=== PATIENT | male | born 1955 | race Caucasian/White ===

== ENCOUNTER 2018-11-24 07:13 | Day surgery (SDC) | payer MEDICARE, SELFPAY ==
[~2018-11-24] VITALS: Ht 170.2 cm; Wt 100.3 kg
[~2018-11-24 07:13] MED LIST: AMLO10 PO; ATEN100; BUPR100 PO; BUPR150ER PO; CLOP75 PO; Hydrochloroth12.5 MG PO; Hydrocodone-Ap1 EA23 PO; LOSA50 PO; RANI150 PO
--- NOTE | 2018-11-24 09:47 | NUR ---
11/24/[address] NOTIFIED THAT PT AND SON ARE REQUESTING STRONGER POST OP PAIN MEDICATION. NO NEW ORDERS RECEIVED. PT STATES 8/10 PAIN. PT DRINKING COFFEE, EATING COOKIES, AND CHATTING WITH SON. PT DOES NOT APPEAR TO BE IN DISTRESS. VSS. PT GIVEN FIRST DOSE OF ORAL POST OP PAIN MEDICATION PER ORDER, SEE EMAR. PT STATES IF WE AREN'T GIVING HIM ANYTHING STRONGER HE IS READY TO GO HOME. DISCHARGE TEACHING COMPLETE W/ PT AND SON. NO QUESTIONS AT THIS TIME.
== END 2018-11-24 09:50 | disposition home or self-care (01) ==
LOC: ORSCSDS 07:13
PROVIDERS: Orthopaedic Surgery
PROC: 0MB30ZZ Excision of Right Elbow Bursa and Ligament, Open Approach (ICD-10-PCS; principal; 2018-11-24 08:15)
DX: M70.21 Olecranon bursitis, right elbow (principal); I10 Essential (primary) hypertension; J44.9 Chronic obstructive pulmonary disease, unspecified; F17.210 Nicotine dependence, cigarettes, uncomplicated; E66.9 Obesity, unspecified; Z68.34 Body mass index [BMI] 34.0-34.9, adult; Z79.899 Other long term (current) drug therapy
CPT/HCPCS: 88304; J0690; J1100; J1885; J2405; J2704; J2795; J3010; J7120

== ENCOUNTER → 2020-01-19 | Outpatient (CLI) | payer MEDICARE ==
[2020-01-19 18:20] LABS: Protein, Urine Quantitative 238.3 mg/dL (0.0-11.9)
== END | disposition home or self-care (01) ==
LOC: LAB 12:00 → LAB SHORT 12:00
PROVIDERS: Internal Medicine
DX: N17.9 Acute kidney failure, unspecified (principal)
CPT/HCPCS: 81050; 84156

== ENCOUNTER 2023-12-08 06:01 | Day surgery (SDC) | payer MEDICARE ==
[~2023-12-08] VITALS: Ht 170.2 cm; Wt 107.0 kg
[~2023-12-08 06:01] MED LIST changes: +CALC.25 PO; +GABA300 PO; +MULTI-VITAMIN1 EAC2 PO; +Vitamin B Comple1 EA PO
[2023-12-08] MEDS ORDERED: Lactated Ringer's 1,000 ML IV SCH (06:30)
[2023-12-08 06:46] VITALS: BP 137/75
[2023-12-08] MEDS ORDERED: Ipratropium/Albuterol SulF 2.5-0.5MG/3 ML Amp ONE (07:22)
[2023-12-08] MEDS ORDERED: Ipratropium/Albuterol SulF 2.5-0.5MG/3 ML Amp INH ONE (07:25)
[2023-12-08] MEDS ORDERED: propofoL 20 ML IV ONE ×3 (07:35→07:52)
--- NOTE | 2023-12-08 07:38 | NUR ---
12/08/23 0737 Norberto Grady MONITOR INTACT WITH CONTINUOUS PULSE OXIMETRY, CONTINUOUS END TITAL CO2, AND INTERMITTENT BLOOD PRESSURE.AND EKG ANESTHESIA PER. YARIEL LITHOPONE CHARGER
[2023-12-08] MEDS ORDERED: Labetalol HCL 5 MG/ML 20MLVIAL ONE (07:58)
[2023-12-08 08:05] VITALS: BP 123/70
[2023-12-08 08:15] VITALS: BP 129/79
--- NOTE | 2023-12-08 08:45 | NUR ---
Discharge instructions reviewed with patient. Patient verbalizes understanding. Copy given to patient to take home. Patient States Post-Procedure ride home has been arranged. Discharged via wheelchair to private car for ride home.
== END 2023-12-08 23:56 | disposition home or self-care (01) ==
LOC: ORSCMMR 06:01 → ORD 07:30 → ORSCMMR 23:56
PROVIDERS: Internal Medicine Gastroenterology
PROC: 0DBH8ZX Excision of Cecum, Via Natural or Artificial Opening Endoscopic, Diagnostic (ICD-10-PCS; principal; 2023-12-08 07:30)
PROC: 0DBL8ZX Excision of Transverse Colon, Via Natural or Artificial Opening Endoscopic, Diagnostic (ICD-10-PCS; principal; 2023-12-08 07:30)
DX: Z12.11 Encounter for screening for malignant neoplasm of colon (principal); D12.0 Benign neoplasm of cecum; D12.3 Benign neoplasm of transverse colon; Z80.0 Family history of malignant neoplasm of digestive organs; G47.33 Obstructive sleep apnea (adult) (pediatric); J44.9 Chronic obstructive pulmonary disease, unspecified; I10 Essential (primary) hypertension; Z68.36 Body mass index [BMI] 36.0-36.9, adult; Z96.642 Presence of left artificial hip joint; Z79.899 Other long term (current) drug therapy; Z87.891 Personal history of nicotine dependence
CPT/HCPCS: 88305; J2704; J7120